=== PATIENT | male | born 1990 | race Caucasian/White ===

== ENCOUNTER 2020-05-10 14:25 | Emergency (ER) | payer BC, SELFPAY ==
[~2020-05-10] VITALS: Ht 177.8 cm; Wt 108.9 kg
[2020-05-10 14:51] VITALS: BP 156/92
--- NOTE | 2020-05-10 14:55 | NUR ---
29/M BIB SELF C/O SORE THROAT, [place], [place] X YESTERDAY. DENIES PAIN AT THIS TIME. PMH:ASTHMA
--- NOTE | 2020-05-10 16:26 | NUR ---
covid swab done.
[2020-05-10 16:52] VITALS: BP 156/92
--- NOTE | 2020-05-10 16:54 | NUR ---
Patient discharged with v/s stable. Written and verbal after care instructions given and explained. Patient verbalized understanding. Ambulatory with steady gait. All questions addressed prior to discharge. Advised to follow up with PMD.
== END 2020-05-10 16:54 | disposition home or self-care (01) ==
LOC: MED 14:25
DX: R51.9 Headache, unspecified (principal); Z20.828 Contact with and (suspected) exposure to other viral communicable diseases; J45.909 Unspecified asthma, uncomplicated
CPT/HCPCS: 99283; U0003